=== PATIENT | female | born 1995 | race Caucasian/White ===

== ENCOUNTER 2016-11-28 17:52 | Emergency (ER) | payer OTHER ==
[~2016-11-28] VITALS: Ht 170.2 cm; Wt 59.0 kg
[~2016-11-28 17:52] MED LIST: IBUPROFEN200 MG PO; IBUPROFEN800 MG PO; NORCO 5-325 TA1 EACH PO
[2016-11-28] MEDS ORDERED: KETOROLAC TROME10 MG PO (18:30)
== END 2016-11-28 18:37 | disposition home or self-care (01) ==
LOC: ED 17:52
DX: S63.501A Unspecified sprain of right wrist, initial encounter (principal); F17.200 Nicotine dependence, unspecified, uncomplicated; Z88.0 Allergy status to penicillin; W22.8XXA Striking against or struck by other objects, initial encounter
CPT/HCPCS: 73110; 99283

== ENCOUNTER 2017-07-17 17:16 | Emergency (ER) | payer OTHER ==
[~2017-07-17] VITALS: Ht 170.2 cm; Wt 59.0 kg
[~2017-07-17 17:16] MED LIST changes: +KETOROLAC TROME10 MG PO
== END 2017-07-17 18:00 | disposition home or self-care (01) ==
LOC: ED 17:16
DX: O9A.212 Injury, poisoning and certain other consequences of external causes complicating pregnancy, second trimester (principal); T63.481A Toxic effect of venom of other arthropod, accidental (unintentional), initial encounter; O99.332 Smoking (tobacco) complicating pregnancy, second trimester; F17.200 Nicotine dependence, unspecified, uncomplicated; Z88.0 Allergy status to penicillin; Z79.899 Other long term (current) drug therapy
CPT/HCPCS: 99282

== ENCOUNTER 2018-04-30 02:25 | Emergency (ER) | payer OTHER ==
[~2018-04-30] VITALS: Ht 170.2 cm; Wt 71.7 kg
[2018-04-30] MEDS ORDERED: TRAMADOL HCL50 MG PO (03:52)
== END 2018-04-30 04:03 | disposition home or self-care (01) ==
LOC: ED 02:25
DX: S10.93XA Contusion of unspecified part of neck, initial encounter (principal); M54.5 Low back pain; M54.6 Pain in thoracic spine; G89.29 Other chronic pain; Y04.8XXA Assault by other bodily force, initial encounter; F17.200 Nicotine dependence, unspecified, uncomplicated; Z88.0 Allergy status to penicillin
CPT/HCPCS: 72070; 72100; 84703; 99284-25

== ENCOUNTER 2020-11-16 08:19 | Emergency (ER) | payer BC ==
[~2020-11-16] VITALS: Ht 170.2 cm; Wt 56.7 kg
[~2020-11-16 08:19] MED LIST changes: +TRAMADOL HCL50 MG PO
[2020-11-16] MEDS ORDERED: CEPHALEXIN500 M1 PO (08:56)
== END 2020-11-16 09:40 | disposition home or self-care (01) ==
LOC: ED 08:19
DX: L03.124 Acute lymphangitis of left upper limb (principal); F17.200 Nicotine dependence, unspecified, uncomplicated; Z88.0 Allergy status to penicillin
CPT/HCPCS: 85025; 99283

== ENCOUNTER 2021-12-21 17:32 | Emergency (ER) | payer BC ==
[~2021-12-21] VITALS: Ht 170.2 cm; Wt 59.0 kg
[~2021-12-21 17:32] MED LIST changes: +CEPHALEXIN500 M1 PO
== END 2021-12-21 19:45 | disposition home or self-care (01) ==
LOC: ED 17:32
DX: G89.29 Other chronic pain (principal); M54.50 Low back pain, unspecified; F17.200 Nicotine dependence, unspecified, uncomplicated; Z88.0 Allergy status to penicillin
CPT/HCPCS: 99283

== ENCOUNTER 2025-03-16 21:05 | Emergency (ER) | payer OTHER ==
[~2025-03-16] VITALS: Ht 170.2 cm; Wt 55.0 kg
[2025-03-16] MEDS ORDERED: VENTOLIN HFA18 GM (21:26)
[2025-03-16] MEDS ORDERED: TRIAMCINOLONE A15 G1 TOP (21:27)
[2025-03-16 22:16] LABS: INFLUENZA B NAA NEGATIVE (NEGATIVE); RESPIRATORY SYNCYTIAL VIR NAA NEGATIVE (NEGATIVE)
[2025-03-16] MEDS ORDERED: methylPREDNISolone 4 MG HOME.PACK PO ONE (22:30)
[2025-03-16 22:53] VITALS: BP 102/69
== END 2025-03-16 22:53 | disposition home or self-care (01) ==
LOC: ED 21:05
PROVIDERS: Family Medicine
DX: R21 Rash and other nonspecific skin eruption (principal); F17.210 Nicotine dependence, cigarettes, uncomplicated
CPT/HCPCS: 87502; 87651; 99283; U0002